=== PATIENT | male | born 1965 ===

== ENCOUNTER 2025-08-27 09:16 | Outpatient (CLI) | payer OTHER | END 2025-08-27 09:17 | disposition home or self-care (01) | LOC: CSHSLEEP 09:16 | PROVIDERS: ATTEND Physician Assistant | DX: E66.01 Morbid (severe) obesity due to excess calories (principal); Z68.42 Body mass index [BMI] 45.0-49.9, adult; G47.33 Obstructive sleep apnea (adult) (pediatric) | CPT/HCPCS: 95800 ==